=== PATIENT | male | born 1995 | race Caucasian/White ===

== ENCOUNTER 2018-09-12 17:48 | Emergency (ER) | payer MEDICAID, OTHER ==
[2018-09-12] MEDS ORDERED: HYDROcodone/ACETAMIN 5-325 MG* 1 TAB PO ONE (18:53)
[2018-09-12] MEDS ORDERED: Ibuprofen TAB* 600 MG PO ONE (18:53)
--- NOTE | 2018-09-12 18:59 | UC ---
Dental HPI - HPI Summary HPI Summary: 22-year-old male comes in with chief complaint of right upper molar pain after striking his tooth with a shovel today at home. Pain is constant it's worse when he chews. Nothing seems to really make it better. Patient denies any concern of any other facial injury. No fevers or chills. Patient has been having some dental problems. His father is here with him and says that some teeth are going to be pulled but because of the complexity he needs to go to [place] have them pulled. Patient denies any other injuries. - History of Current Complaint Stated Complaint: W/C DENTAL PAIN Time Seen by Provider: 09/12/18 18:44 - Allergies/Home Medications Allergies/Adverse Reactions: Allergies Allergy/AdvReac Type Severity Reaction Status Date / Time No Known Allergies Allergy Verified 09/12/18 18:47 Home Medications: Home Medications Escitalopram Oxalate [Lexapro 10 mg] 10 mg PO DAILY 09/12/18 [History Confirmed 09/12/18] Fenosidrate ? Spelling 09/12/18 [History] Omeprazole CAP (NF) [Prilosec CAP* 20 MG] 20 mg PO DAILY 09/12/18 [History Confirmed 09/12/18] Propranolol LA CAP* [Inderal LA CAP*] 60 mg PO DAILY 09/12/18 [History Confirmed 09/12/18] PMH/Surg Hx/FS Hx/Imm Hx Previously Healthy: Yes - Family History Known Family History: Positive: Non-Contributory Review of Systems All Other Systems Reviewed And Are Negative: Yes Constitutional: Positive: Negative Skin: Positive: Negative Eyes: Positive: Negative ENT: Positive: Dental Pain Respiratory: Positive: Negative Cardiovascular: Positive: Negative Gastrointestinal: Positive: Negative Motor: Positive: Negative Neurovascular: Positive: Negative Musculoskeletal: Positive: Negative Neurological: Positive: Negative Psychological: Positive: Negative Is Patient Immunocompromised?: No Physical Exam Triage Information Reviewed: Yes Completion Of Physical Exam Limited Due To: Patient is uncooperative with exam Appearance: Well-Appearing, Well-Nourished, Pain Distress - MODERATE Vital Signs Reviewed: Yes Eye Exam: Normal Eyes: Positive: Conjunctiva Clear ENT: Negative: Nasal congestion, Nasal drainage Dental: Positive: Other: - The patient points at the Right upper molar as the area of pain. There is no obvious fracture. He does have dental decay in the other molars directly to the posterior all the way into the gums. Patient slightly agitated which makes a complete examination difficult. Neck: Positive: Supple Respiratory: Positive: No respiratory distress Musculoskeletal Exam: Normal Musculoskeletal: Positive: Strength Intact, ROM Intact Neurological: Positive: Alert Psychological: Positive: Other: - AGITATED Skin Exam: Normal Dental Complaint Course/Dx - Course Course Of Treatment: In clinic patient was given ibuprofen 600 milligrams and [place] 5 mg. I also wrote a prescription for the [place]. Also wrote a prescription for amoxicillin given the possibility of infection given the dental caries. he will follow up with his dentist. Patient was fairly agitated in the clinic which limited the examination. Patient did report that there were no other injury other than the right upper molar. - Differential Dx/Diagnosis Provider Diagnosis: Toothache Discharge - Sign-Out/Discharge Documenting (check all that apply): Patient Departure All imaging exams completed and their final reports reviewed: No Studies - Discharge Plan Condition: Stable Disposition: HOME Prescriptions: Amoxicillin PO (*) [Amoxicillin 500 MG CAP*] 500 mg PO TID #30 cap HYDROcodone/ACETAMIN 5-325 MG* [[place] 5-325 TAB*] 1 tab PO Q4H PRN #30 tab MDD 6 PRN Reason: Pain Patient Education Materials: Toothache (ED) Referrals: Jose L Gorman PA [Primary Care Provider] - Additional Instructions: FOLLOW UP WITH YOUR DENTIST. GET REEVALUATED SOONER IF YOUR CONDITION WORSENS OR ANY QUESTIONS OR CONCERNS. - Billing Disposition and Condition Condition: STABLE Disposition: Home
[2018-09-12 19:01] VITALS: BP 130/71
== END 2018-09-12 19:06 | disposition home or self-care (01) ==
LOC: UCCORT 17:48
DX: K08.89 Other specified disorders of teeth and supporting structures (principal)
CPT/HCPCS: 99211; A9270-GY; G0463

== ENCOUNTER 2018-10-03 11:18 | Emergency (ER) | payer OTHER ==
[2018-10-03 11:33] VITALS: BP 110/61
--- NOTE | 2018-10-03 12:01 | UC ---
HPI Wound/Suture Re-check - HPI Summary HPI Summary: here for wound check right index finger laceration 2 days ago , was seen at ED sutures were placed at ED , here for wound check denies any redness, pain , no discharge , mild swelling no fever , no chills - History Of Current Complaint Chief Complaint: UCUpperExtremity Stated Complaint: RT INDEX FINGER INJURY RECHECK Time Seen by Provider: 10/03/18 11:45 Hx Obtained From: Patient Onset/Duration: Sudden Onset, Lasting Days - 2, Still Present Severity: Moderate Pain Intensity: 0 Procedure Type: had laceration repari at ED 2 days ago , here for wound check Surgery Date: 10/01/18 - Allergies/Home Medications Allergies/Adverse Reactions: Allergies Allergy/AdvReac Type Severity Reaction Status Date / Time No Known Allergies Allergy Verified 10/03/18 11:33 Home Medications: Home Medications Fluticas/Salmet 230/21 HFA(NF) [Advair HFA 23O/21 (NF)] 1 puff INH BID 10/03/18 [History Confirmed 10/03/18] PMH/Surg Hx/FS Hx/Imm Hx Previously Healthy: Yes - Surgical History Surgical History: Yes Surgery Procedure, Year, and Place: dental extractions - Family History Known Family History: Positive: Non-Contributory Negative: Diabetes - Social History Alcohol Use: Occasionally Substance Use Type: Marijuana Substance Use Comment - Amount & Last Used: Tuesday Smoking Status (MU): Heavy Every Day Tobacco Smoker Type: Cigarettes Amount Used/How Often: 1 ppd Have You Smoked in the Last Year: Yes Review of Systems All Other Systems Reviewed And Are Negative: Yes Constitutional: Positive: Negative Eyes: Positive: Negative ENT: Positive: Negative Respiratory: Positive: Negative Is Patient Immunocompromised?: No Physical Exam Triage Information Reviewed: Yes Appearance: Well-Appearing, No Pain Distress, Well-Nourished Vital Signs: Initial Vital Signs Temp 97.1 F 10/03/18 11:25 Pulse 70 10/03/18 11:25 Resp 18 10/03/18 11:25 BP 110/61 10/03/18 11:25 Pulse Ox 99 10/03/18 11:25 Vital Signs Reviewed: Yes Eye Exam: Normal Eyes: Positive: Conjunctiva Clear ENT: Positive: Normal ENT inspection, Hearing grossly normal, Pharynx normal Neck exam: Normal Neck: Positive: Supple, Nontender, No Lymphadenopathy Respiratory: Positive: Chest non-tender, Lungs clear, Normal breath sounds Cardiovascular: Positive: RRR, No Murmur, Pulses Normal Skin: Positive: Other - 2 cm laceration right index finger , sutures were place at Ed , wound is clean , healing well mild swelling, no erythema, no dischare, Course/Dx - Diagnosis Provider Diagnosis: Encounter for postoperative wound check Discharge - Sign-Out/Discharge Documenting (check all that apply): Patient Departure All imaging exams completed and their final reports reviewed: No Studies - Discharge Plan Condition: Stable Disposition: HOME Patient Education Materials: Care For Your Stitches (ED) Referrals: Jose L Gorman PA [Primary Care Provider] - Additional Instructions: laceration is healing well keep the area clean , change the dressing daily limited use of your right index finger follow up in 7 days for suture removal - Billing Disposition and Condition Condition: STABLE Disposition: Home
== END 2018-10-03 12:06 | disposition home or self-care (01) ==
LOC: UCCORT 11:18
DX: S61.210D Laceration without foreign body of right index finger without damage to nail, subsequent encounter (principal); F17.210 Nicotine dependence, cigarettes, uncomplicated; X58.XXXD Exposure to other specified factors, subsequent encounter
CPT/HCPCS: 99211; G0463